=== PATIENT | male | born 1990 | race African-American/Black ===

== ENCOUNTER 2019-06-26 08:15 | Emergency (ER) | payer SELFPAY ==
[~2019-06-26] VITALS: Ht 188 cm; Wt 176.9 kg
[2019-06-26 10:35] LABS: BASO % 1 % (0-3); EOS # 0.1 x10^3/uL (0.0-0.7); EOS % 1 % (0-3); HEMATOCRIT 35.6 % (39.0-53.0); HEMOGLOBIN 11.8 g/dL (13.0-17.5); LYMPH % 17 % (24-48); MEAN CORPUSCULAR HEMOGLOBIN 27 pg (25-35); MEAN CORPUSCULAR HGB CONC 33 g/dL (31-37); MEAN CORPUSCULAR VOLUME 82 fL (79-100); MONO # 0.4 x10^3/uL (0.0-1.1); MONO % 7 % (0-9); NEUT # 4.5 x10^3/uL (1.8-7.7); NEUT % 75 % (31-73); PLATELET COUNT 332 x10^3/uL (140-400); RED BLOOD COUNT 4.33 x10^6/uL (4.30-5.70); RED CELL DISTRIBUTION WIDTH 15.8 % (11.5-14.5); WHITE BLOOD COUNT 6.1 x10^3/uL (4.0-11.0)
--- NOTE | 2019-06-26 10:38 | RAD ---
PORTABLE CHEST 1V History: Palpitations Comparison: June 16, 2014 Findings: Low lung volumes. Retrocardiac opacity. Stable heart size. Impression: 1. Low lung volumes with retrocardiac opacity, most likely summation artifact and/or atelectasis. PA and lateral view of the chest can better evaluate. Electronically signed by: Tera Lawrence DO (06/26/2019 10:35 AM) [id number]
[2019-06-26] MEDS ORDERED: IV NORMAL SALINE 1000ML BAG 1,000 ML IV ONE (10:45)
[2019-06-26 10:58] LABS: BILIRUBIN,URINE NEGATIVE (NEG); CLARITY,URINE TURBID; COLOR,URINE YELLOW; NITRITE,URINE NEGATIVE (NEG); PROTEIN,URINE NEGATIVE (NEG-TRACE)
[2019-06-26 10:59] LABS: CALCIUM 8.9 mg/dL (8.5-10.1); GFR 108.5; POTASSIUM 3.9 mmol/L (3.5-5.1)
[2019-06-26 11:06] LABS: BACTERIA,URINE 0 /HPF (0-FEW); RBC,URINE 0 /HPF (0-2); SQUAMOUS EPITHELIAL CELL,UR OCC /LPF; WBC,URINE OCC /HPF (0-4)
[2019-06-26 11:12] LABS: ALBUMIN 3.2 g/dL (3.4-5.0); ALBUMIN/GLOBULIN RATIO 0.7 (1.0-1.7); MAGNESIUM 1.8 mg/dL (1.8-2.4); TOTAL BILIRUBIN 0.4 mg/dL (0.2-1.0); TOTAL PROTEIN 7.6 g/dL (6.4-8.2)
--- NOTE | 2019-06-26 11:16 | EKG ---
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
[2019-06-26 11:22] VITALS: BP 123/65
--- NOTE | 2019-06-26 11:45 | PHYS DOC ---
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 He states he felt his chest was tight. Denies any chest pain, denies any shortness of breath. Denies any significant previous medical history. Denies any family history of cardiac events at the age of 50 or less. He states he drinks energy drinks but did not take any this morning. Denies any fever, coughing, congestion. Review of Systems Review of Systems Constitutional: Denies fever or chills [] Eyes: Denies change in visual acuity, redness, or eye pain [] HENT: Denies nasal congestion or sore throat [] Respiratory: Denies cough or shortness of breath [] Cardiovascular: Reports palpitations GI: Denies abdominal pain, nausea, vomiting, bloody stools or diarrhea [] : Denies dysuria or hematuria [] Musculoskeletal: Denies back pain or joint pain [] Integument: Denies rash or skin lesions [] Neurologic: Denies headache, focal weakness or sensory changes [] All other systems were reviewed and found to be within normal limits, except as documented in this note. Current Medications Current Medications Current Medications Medications (Trade) Dose Ordered Sig/[facility] Start Time Stop Time Status Last Admin Dose Admin Sodium Chloride 1,000 ml @ 1,000 mls/hr 1X ONCE 06/26/19 10:45 06/26/19 11:44 06/26/19 10:40 1,000 MLS/HR Allergies Allergies Allergies Coded Allergies Type Severity Reaction Last Updated Verified No Known Drug Allergies 06/16/14 No Physical Exam Physical Exam Constitutional: Well developed, well nourished, no acute distress, non-toxic appearance. [] HENT: Normocephalic, atraumatic, bilateral external ears normal, oropharynx moist, no oral exudates, nose normal. [] Eyes: PERRLA, EOMI, conjunctiva normal, no discharge. [] Neck: Normal range of motion, no tenderness, supple, no stridor. [] Cardiovascular:Heart rate regular rhythm, no murmur [] Lungs & Thorax: Bilateral breath sounds clear to auscultation [] Abdomen: Bowel sounds normal, soft, no tenderness, no masses, no pulsatile masses. [] Skin: Warm, dry, no erythema, no rash. [] Back: No tenderness, no CVA tenderness. [] Extremities: No tenderness, no cyanosis, no clubbing, ROM intact, no edema. [] Neurologic: Alert and oriented X 3, normal motor function, normal sensory function, no focal deficits noted. [] Psychologic: Affect normal, judgement normal, mood normal. [] Current Patient Data Vital Signs Vital Signs Date Time Temp Pulse Resp B/P (MAP) Pulse Ox O2 Delivery O2 Flow Rate FiO2 06/26/19 11:22 70 123/65 (84) 96 Room Air 06/26/19 08:50 98.6 16 98.6 Lab Values Laboratory Tests Test 06/26/19 10:20 06/26/19 10:35 White Blood Count 6.1 x10^3/uL (4.0-11.0) Red Blood Count 4.33 x10^6/uL (4.30-5.70) Hemoglobin 11.8 g/dL (13.0-17.5) L Hematocrit 35.6 % (39.0-53.0) L Mean Corpuscular Volume 82 fL (79-100) Mean Corpuscular Hemoglobin 27 pg (25-35) Mean Corpuscular Hemoglobin Concent 33 g/dL (31-37) Red Cell Distribution Width 15.8 % (11.5-14.5) H Platelet Count 332 x10^3/uL (140-400) Neutrophils (%) (Auto) 75 % (31-73) H Lymphocytes (%) (Auto) 17 % (24-48) L Monocytes (%) (Auto) 7 % (0-9) Eosinophils (%) (Auto) 1 % (0-3) Basophils (%) (Auto) 1 % (0-3) Neutrophils # (Auto) 4.5 x10^3/uL (1.8-7.7) Lymphocytes # (Auto) 1.0 x10^3/uL (1.0-4.8) Monocytes # (Auto) 0.4 x10^3/uL (0.0-1.1) Eosinophils # (Auto) 0.1 x10^3/uL (0.0-0.7) Basophils # (Auto) 0.0 x10^3/uL (0.0-0.2) D-Dimer (Shandra) 0.48 ug/mlFEU (0.00-0.50) Sodium Level 142 mmol/L (136-145) Potassium Level 3.9 mmol/L (3.5-5.1) Chloride Level 105 mmol/L (98-107) Carbon Dioxide Level 29 mmol/L (21-32) Anion Gap 8 (6-14) Blood Urea Nitrogen 7 mg/dL (8-26) L Creatinine 1.0 mg/dL (0.7-1.3) Estimated GFR (Cockcroft-Gault) 108.5 BUN/Creatinine Ratio 7 (6-20) Glucose Level 100 mg/dL (70-99) H Calcium Level 8.9 mg/dL (8.5-10.1) Magnesium Level 1.8 mg/dL (1.8-2.4) Total Bilirubin 0.4 mg/dL (0.2-1.0) Aspartate Amino Transferase (AST) 28 U/L (15-37) Alanine Aminotransferase (ALT) 30 U/L (16-63) Alkaline Phosphatase 57 U/L (46-116) Creatine Kinase 438 U/L (39-308) H Creatine Kinase MB (Mass) 1.4 ng/mL (0.0-3.6) Creatine Kinase MB Relative Index 0.3 % (0-4) Troponin I Quantitative < 0.017 ng/mL (0.000-0.055) YF-Wmh-N-Type Natriuretic Peptide 76 pg/mL (0-124) Total Protein 7.6 g/dL (6.4-8.2) Albumin 3.2 g/dL (3.4-5.0) L Albumin/Globulin Ratio 0.7 (1.0-1.7) L Thyroid Stimulating Hormone (TSH) 1.165 uIU/mL (0.358-3.74) Urine Collection Type Unknown Urine Color Yellow Urine Clarity Turbid Urine pH 8.0 Urine Specific [place] 1.020 Urine Protein Negative mg/dL (NEG-TRACE) Urine Glucose (UA) Negative mg/dL (NEG) Urine Ketones (Stick) Negative mg/dL (NEG) Urine Blood Negative (NEG) Urine Nitrite Negative (NEG) Urine Bilirubin Negative (NEG) Urine Urobilinogen Dipstick 1.0 mg/dL (0.2 mg/dL) Urine Leukocyte Esterase Negative (NEG) Urine RBC 0 /HPF (0-2) Urine WBC Occ /HPF (0-4) Urine Squamous Epithelial Cells Occ /LPF Urine Bacteria 0 /HPF (0-FEW) Laboratory Tests 06/26/19 10:20 Laboratory Tests 06/26/19 10:20 EKG EKG 1009 Interpreted by Yojana sinus rhythm HR 73 no STEMI Radiology/Procedures Radiology/Procedures []PROCEDURE: PORTABLE CHEST 1V PORTABLE CHEST 1V History: Palpitations Comparison: June 16, 2014 Findings: Low lung volumes. Retrocardiac opacity. Stable heart size. Impression: 1. Low lung volumes with retrocardiac opacity, most likely summation artifact and/or atelectasis. PA and lateral view of the chest can better evaluate. Electronically signed by: Tera Gates DO (06/26/2019 10:35 AM) [id number] DICTATED and SIGNED BY: TERA GATES DO DATE: 06/26/19 1035 Course & Med Decision Making Course & Med Decision Making Pertinent Labs and Imaging studies reviewed. (See chart for details) This is a 28-year-old male patient presented to the ED today with complaints of his heart racing when on the way to work. Patient arrives in the ED with heart rates in the 70s to 80s. EKG shows sinus rate them. Lab work is negative i ncluding d-dimer. His hemoglobin is slightly low at 11.8 with hematocrit of 35.6, this is around his baseline. No rectal bleeding, no abdominal pain nausea or vomiting. Patient was given a liter of fluid. He is feeling better. Discharged to home. Provided general practitioner for follow-up. Dragon Disclaimer Dragon Disclaimer This electronic medical record was generated, in whole or in part, using a voice recognition dictation system. Departure Departure Impression: Primary Impression: Palpitations Disposition: HOME, SELF-CARE Condition: STABLE Referrals: NO PCP (PCP) COLIN JACOBS MD follow up in one week Patient Instructions: Palpitations, [id number] Additional Instructions: You on the were evaluated in the emergency room for palpitations, your workup was negative for any acute findings. Please establish care with a general practitioner as well as a primary care doctor and follow-up Scripts No Active Prescriptions or Reported Meds JELANI OTTO APRN Jun 26, 2019 11:45
== END 2019-06-26 12:04 | disposition home or self-care (01) ==
LOC: ER 08:15
DX: R00.2 Palpitations (principal); E66.01 Morbid (severe) obesity due to excess calories; Z68.43 Body mass index [BMI] 50.0-59.9, adult
CPT/HCPCS: 36415; 71045; 80053; 81001; 82553; 83735; 83880; 84443; 84484; 85025; 85379; 93005; 99285; J7030

== ENCOUNTER 2019-08-15 07:42 | Emergency (ER) | payer SELFPAY ==
[~2019-08-15] VITALS: Ht 188 cm; Wt 176.9 kg
[2019-08-15] MEDS ORDERED: IV NORMAL SALINE 1000ML BAG 1,000 ML IV SCH (08:01)
--- NOTE | 2019-08-15 08:07 | PHYS DOC ---
Past Medical History Additional Past Medical Histor: obesity Past Surgical History: No Surgical History Alcohol Use: Occasionally Drug Use: None Adult General Chief Complaint Chief Complaint: CHEST PAIN HPI HPI Patient is a 28-year-old male who presents to the emergency department for evaluation. He states that he was in his usual state of health last night when he went to bed, and awaken this morning with nasal congestion, a fever, as well as anterior pleuritic chest pain. He has not had a cough. He denies any otalgia, sore throat, abdominal pain, and his anterior chest pain is sharp, and nonradiating. Other than deep breathing worsens his pain, There are no alleviating or exacerbating factors to his symptoms otherwise. Review of Systems Review of Systems Constitutional: Denies fever or chills [] Eyes: Denies change in visual acuity, redness, or eye pain [] HENT: Denies otalgia or sore throat [] Respiratory: Denies cough. Reports felt short of breath earlier this morning.[] Cardiovascular: No additional information not addressed in HPI [] GI: Denies abdominal pain, nausea, vomiting, bloody stools or diarrhea [] : Denies dysuria or hematuria [] Musculoskeletal: Denies back pain or joint pain [] Integument: Denies rash or skin lesions [] Neurologic: Denies headache, focal weakness or sensory changes [] Endocrine: Denies polyuria or polydipsia [] All other systems were reviewed and found to be within normal limits, except as documented in this note. Current Medications Current Medications Current Medications Medications (Trade) Dose Ordered Sig/Carolyn Start Time Stop Time Status Last Admin Dose Admin Acetaminophen (Tylenol) 1,000 mg 1X ONCE 08/15/19 08:15 08/15/19 08:16 DC 08/15/19 08:31 1,000 MG Sodium Chloride 1,000 ml @ 1,000 mls/hr Q1H 08/15/19 08:01 08/15/19 09:00 DC 08/15/19 08:31 1,000 MLS/HR Allergies Allergies Allergies Coded Allergies Type Severity Reaction Last Updated Verified No Known Drug Allergies 06/16/14 No Physical Exam Physical Exam PHYSICAL EXAM: CONSTITUTIONAL: Well developed, well nourished HEAD: normocephalic, atraumatic EENT: PERRL, EOMI. Conjunctivae normal color, sclerae non-icteric; moist mucous membranes. Nasal congestion is present. NECK: Supple, non-tender; no meningismus. LUNGS: Lungs CTA, breathing even and unlabored. Normal air movement. HEART: Regular rate and rhythm, no murmur CHEST: No deformity; there is tenderness to palpation to the anterior chest wall, which reproduces the patient's pain. ABDOMEN: The abdomen is soft, and non-tender, no masses or bruits. EXTREM: Normal ROM; no deformity, no calf tenderness. Normal pulses palpable in all extremities. There is no pedal edema. SKIN: No rash; no diaphoresis NEURO: Alert; normal speech and cognition; CN's grossly intact; strength grossly intact without focal deficit. BACK: No CVA TTP. Current Patient Data Vital Signs Vital Signs Date Time Temp Pulse Resp B/P (MAP) Pulse Ox O2 Delivery O2 Flow Rate FiO2 08/15/19 08:30 104 20 138/55 (82) 95 Room Air 08/15/19 07:47 105.4 105.4 Lab Values Laboratory Tests Test 08/15/19 08:15 White Blood Count 11.5 x10^3/uL (4.0-11.0) H Red Blood Count 4.39 x10^6/uL (4.30-5.70) Hemoglobin 12.0 g/dL (13.0-17.5) L Hematocrit 36.4 % (39.0-53.0) L Mean Corpuscular Volume 83 fL (79-100) Mean Corpuscular Hemoglobin 27 pg (25-35) Mean Corpuscular Hemoglobin Concent 33 g/dL (31-37) Red Cell Distribution Width 15.6 % (11.5-14.5) H Platelet Count 328 x10^3/uL (140-400) Neutrophils (%) (Auto) 87 % (31-73) H Lymphocytes (%) (Auto) 7 % (24-48) L Monocytes (%) (Auto) 6 % (0-9) Eosinophils (%) (Auto) 0 % (0-3) Basophils (%) (Auto) 0 % (0-3) Neutrophils # (Auto) 10.0 x10^3/uL (1.8-7.7) H Lymphocytes # (Auto) 0.8 x10^3/uL (1.0-4.8) L Monocytes # (Auto) 0.7 x10^3/uL (0.0-1.1) Eosinophils # (Auto) 0.0 x10^3/uL (0.0-0.7) Basophils # (Auto) 0.0 x10^3/uL (0.0-0.2) Platelet Estimate Pending D-Dimer (Shandra) 0.38 ug/mlFEU (0.00-0.50) Sodium Level 141 mmol/L (136-145) Potassium Level 4.1 mmol/L (3.5-5.1) Chloride Level 105 mmol/L (98-107) Carbon Dioxide Level 27 mmol/L (21-32) Anion Gap 9 (6-14) Blood Urea Nitrogen 10 mg/dL (8-26) Creatinine 1.3 mg/dL (0.7-1.3) Estimated GFR (Cockcroft-Gault) 80.1 BUN/Creatinine Ratio 8 (6-20) Glucose Level 100 mg/dL (70-99) H Lactic Acid Level 1.2 mmol/L (0.4-2.0) Calcium Level 9.4 mg/dL (8.5-10.1) Total Bilirubin 0.8 mg/dL (0.2-1.0) Aspartate Amino Transferase (AST) 24 U/L (15-37) Alanine Aminotransferase (ALT) 26 U/L (16-63) Alkaline Phosphatase 57 U/L (46-116) Troponin I Quantitative < 0.017 ng/mL (0.000-0.055) BX-Emq-A-Type Natriuretic Peptide 130 pg/mL (0-124) H Total Protein 7.5 g/dL (6.4-8.2) Albumin 3.5 g/dL (3.4-5.0) Albumin/Globulin Ratio 0.9 (1.0-1.7) L Influenza Type A Antigen Negative (NEGATIVE) Influenza Type B Antigen Negative (NEGATIVE) Laboratory Tests 08/15/19 08:15 Laboratory Tests 08/15/19 08:15 EKG EKG [] Sinus tachycardia at a rate of 123 bpm, normal axis, normal intervals. Nonspecific ST/T changes. Radiology/Procedures Radiology/Procedures PROCEDURE: CHEST PA & LATERAL CHEST PA LATERAL History: Fever, cough, chest pain Comparison: 06/26/2019 Portable Chest X-ray Exam. Findings: Frontal and lateral views of the chest were obtained. Limited pulmonary inflation noted. The cardiomediastinal silhouette is normal. Pulmonary vasculature is normal. The lungs are clear. No pleural effusion or pneumothorax is seen. There is no acute bone abnormality. IMPRESSION: No acute cardiopulmonary process. [] Course & Med Decision Making Course & Med Decision Making Pertinent Labs and Imaging studies reviewed. (See chart for details) []9:30 AM:Patient remains stable. He is feeling better at this time. I discussed test results, the need for close follow-up, and return precautions. Dragon Disclaimer Dragon Disclaimer This electronic medical record was generated, in whole or in part, using a voice recognition dictation system. Departure Departure Impression: Primary Impression: Upper respiratory infection Additional Impression: Musculoskeletal chest pain Disposition: HOME, SELF-CARE Condition: STABLE Patient Instructions: Musculoskeletal Pain, Pleurisy, Upper Respiratory Infection, Adult Additional Instructions: Ibuprofen 400-600 mg every 6 hours may help improve your symptoms. Applying a heating pad to the affected area may help improve your symptoms. Use the provided list of primary care providers to schedule follow-up with a PCP, for further outpatient evaluation and treatment. Scripts No Active Prescriptions or Reported Meds Problem Qualifiers KAILASH AVENDANO MD Aug 15, 2019 08:07
[2019-08-15] MEDS ORDERED: ACETAMINOPHEN 500 MG TABLET PO ONE (08:15)
--- NOTE | 2019-08-15 08:31 | EKG ---
[facility] [address] [place] [address] Test Date: 2019-08-15 Test Time: 07:50:01 Pat Name: HUBER ZUNIGA Department: Room: Gender: M [employer] C[employer]: : 1990 Requested By: KAILASH AVENDANO Order Number: [id number] Reading MD: Measurements Intervals [place] Rate: 122 P: -56 [place]: 134 QRS: 17 QRSD: 84 T: 52 QT: 344 QTc: 498 Interpretive Statements SINUS TACHYCARDIA LEFT ATRIAL ABNORMALITY NON SPECIFIC T ABNORMALITY ABNORMAL ECG No previous ECG available for comparison
[2019-08-15 08:36] LABS: BASO % 0 % (0-3); EOS % 0 % (0-3); HEMATOCRIT 36.4 % (39.0-53.0); LYMPH # 0.8 x10^3/uL (1.0-4.8); LYMPH % 7 % (24-48); MEAN CORPUSCULAR HEMOGLOBIN 27 pg (25-35); MEAN CORPUSCULAR HGB CONC 33 g/dL (31-37); MEAN CORPUSCULAR VOLUME 83 fL (79-100); MONO # 0.7 x10^3/uL (0.0-1.1); MONO % 6 % (0-9); NEUT % 87 % (31-73); PLATELET COUNT 328 x10^3/uL (140-400); RED BLOOD COUNT 4.39 x10^6/uL (4.30-5.70); RED CELL DISTRIBUTION WIDTH 15.6 % (11.5-14.5); WHITE BLOOD COUNT 11.5 x10^3/uL (4.0-11.0)
--- NOTE | 2019-08-15 08:36 | RAD ---
CHEST PA LATERAL History: Fever, cough, chest pain Comparison: 06/26/2019 Portable Chest X-ray Exam. Findings: Frontal and lateral views of the chest were obtained. Limited pulmonary inflation noted. The cardiomediastinal silhouette is normal. Pulmonary vasculature is normal. The lungs are clear. No pleural effusion or pneumothorax is seen. There is no acute bone abnormality. IMPRESSION: No acute cardiopulmonary process. Electronically signed by: Fredy Beaver MD (08/15/2019 8:33 AM) [facility]
[2019-08-15 08:52] LABS: CALCIUM 9.4 mg/dL (8.5-10.1); CREATININE 1.3 mg/dL (0.7-1.3); GFR 80.1; POTASSIUM 4.1 mmol/L (3.5-5.1)
[2019-08-15 09:04] LABS: ALBUMIN 3.5 g/dL (3.4-5.0); ALBUMIN/GLOBULIN RATIO 0.9 (1.0-1.7); TOTAL BILIRUBIN 0.8 mg/dL (0.2-1.0); TOTAL PROTEIN 7.5 g/dL (6.4-8.2)
[2019-08-15 09:18] LABS: INFLUENZA A PATIENT NEGATIVE (NEGATIVE); INFLUENZA B PATIENT NEGATIVE (NEGATIVE)
[2019-08-15 09:30] VITALS: BP 143/63
[2019-08-15] MEDS ORDERED: KETOROLAC 30 MG/ML VIAL. IV ONE (09:30)
[2019-08-15 09:55] LABS: % LYMPHS 5 % (24-48); % MONOS 4 % (0-10); % SEGS 91 % (35-66); PLT ESTIMATE ADEQUATE (ADEQUATE)
== END 2019-08-15 10:01 | disposition home or self-care (01) ==
LOC: ER 07:42
DX: J06.9 Acute upper respiratory infection, unspecified (principal); R07.89 Other chest pain; E66.9 Obesity, unspecified; Z68.43 Body mass index [BMI] 50.0-59.9, adult
CPT/HCPCS: 36415; 71046; 80053; 83605; 83880; 84484; 85007; 85025; 85379; 87804; 93005; 96374; 99285; J1885; J7030

== ENCOUNTER 2020-09-11 12:27 | Emergency (ER) | payer OTHER ==
[~2020-09-11] VITALS: Ht 188 cm; Wt 186.3 kg
[2020-09-11] MEDS ORDERED: ASPIRIN 325 MG TABLET PO ONE (12:45)
[2020-09-11] MEDS ORDERED: PANTOPRAZOLE IV PUSH 40 MG VIAL. IVP ONE (12:45)
--- NOTE | 2020-09-11 12:45 | PHYS DOC ---
Past Medical History Additional Past Medical Histor: obesity Past Surgical History: No Surgical History Smoking Status: Never Smoker Alcohol Use: Occasionally Drug Use: None General Adult EDM: Chief Complaint: CHEST PAIN HPI: HPI: Patient is a 29 year old male who presents with this morning he states he began having tightness with some soa and pressure in his mid chest and then on the way here about 30-45 minutes ago he has left arm tingling. He states that he saw his neurologist this morning for his migraines. He states there is no family history of heart disease, heart attacks, sudden cardiac arrests. He states his only history is GERD and migraines. He rates this chest pressure a 7 out of 10. He states his left arm still feels tingly. Denies numbness. There is no focal weakness. Patient denies abdominal pain, syncope, dizziness, headache, vision changes, numbness, nausea, vomiting, diarrhea, fever, cough, recent illness. He states he does not smoke. Review of Systems: Review of Systems: Constitutional: Denies fever or chills. [] Eyes: Denies change in visual acuity. [] HENT: Denies nasal congestion or sore throat. [] Respiratory: Denies cough. +shortness of breath. [] Cardiovascular: + chest pain or denies edema. [] GI: Denies abdominal pain, nausea, vomiting, bloody stools or diarrhea. [] : Denies dysuria. [] Musculoskeletal: Denies back pain or joint pain. [] Integument: Denies rash. [] Neurologic: Denies headache, focal weakness or sensory changes. +Left arm tingling [] Endocrine: Denies polyuria or polydipsia. [] Lymphatic: Denies swollen glands. [] Psychiatric: Denies depression or anxiety. [] Heart Score: HEART Score for Chest Pain: HEART Score for Chest Pain Response (Comments) Value History Moderately Suspicious 1 ECG Nonspecific Repolarizatio 1 Age < 45 0 Risk Factors 1 or 2 Risk Factors 1 Troponin < Normal Limit 0 Total 3 Risk Factors: Risk Factors: DM, Current or recent (<one month) smoker, HTN, HLP, family history of CAD, obesity. Risk Scores: Score 0 - 3: 2.5% MACE over next 6 weeks - Discharge Home Score 4 - 6: 20.3% MACE over next 6 weeks - Admit for Clinical Observation Score 7 - 10: 72.7% MACE over next 6 weeks - Early Invasive Strategies Allergies: Allergies: Allergies Coded Allergies Type Severity Reaction Last Updated Verified No Known Drug Allergies 06/16/14 No Physical Exam: PE: Constitutional: Well developed, morbidly obese, well nourished, no acute distress, non-toxic appearance. [] HENT: Normocephalic, atraumatic, bilateral external ears normal, oropharynx moist, no oral exudates, nose normal. [] Eyes: PERRLA, EOMI, conjunctiva normal, no discharge. [] Neck: Normal range of motion, no tenderness, supple, no stridor. [] Cardiovascular:Heart rate bigeminy rhythm, no murmur [] Lungs & Thorax: Bilateral breath sounds clear to auscultation [] Abdomen: Bowel sounds normal, soft, no tenderness, no masses, no pulsatile masses. [] Skin: Warm, dry, no erythema, no rash. [] Back: No tenderness, no CVA tenderness. [] Extremities: No tenderness, no cyanosis, no clubbing, ROM intact, no edema. [] Neurologic: Alert and oriented X 3, normal motor function, normal sensory function, no focal deficits noted. [] Psychologic: Affect normal, judgement normal, mood normal. [] EKG: EK and read by Dr Dial as bigeminy and no STEMI. Radiology/Procedures: Radiology/Procedures: [] Impression: [facility] [address] [place] [address] IMAGING REPORT Signed PATIENT: HUBER ZUNIGA ACCOUNT: [id number] : 1990 LOCATION: ER AGE: 29 SEX: M EXAM STATUS: REG ER ORD. PHYSICIAN: CARLITO SOLER APRN REASON: MID-CHEST PAIN, TIGHTNESS PROCEDURE: PORTABLE CHEST 1V EXAMINATION: PORTABLE CHEST 1V CLINICAL HISTORY: Mid chest pain/tightness EXAM DATE/TIME: 09/11/2020 12:35 PM COMPARISON: 08/15/2019 FINDINGS: Lines, Tubes, and Devices: None. Cardiomediastinal Silhouette: Normal heart size. Lungs and Pleura: No evidence of focal airspace consolidation or pleural effusion. Pulmonary vasculature unremarkable. Bones and Soft Tissues: No acute osseous abnormality. IMPRESSION: No evidence of acute cardiopulmonary abnormality or significant interval change. Electronically signed by: Umesh Saba DO (09/11/2020 1:40 PM) [id number] DICTATED and SIGNED BY: UMESH SABA DO DATE: 09/11/20 1340 [facility] [address] [place] [address] IMAGING REPORT Signed PATIENT: HUBER ZUNIGA ACCOUNT: [id number] : 1990 LOCATION: [address] [place] [address] AGE: 29 SEX: M EXAM STATUS: ADM IN ORD. PHYSICIAN: CARLITO SOLER APRN REASON: BIGEMINY, CHEST PAIN PROCEDURE: CT ANGIOGRAPHY CHEST CT ANGIOGRAPHY CHEST INDICATION: BIGEMINY, CHEST PAIN Comparison: Radiograph 09/11/2020. TECHNIQUE: Following the uneventful administration of intravenous contrast, 100 cc Omnipaque 350, axial CT sections were obtained through the lungs and upper abdomen. Multiplanar reconstructions and MIP images were obtained. PQRS compliance statement: One or more of the following individualized dose reduction techniques were utilized for this examination: 1. Automated exposure control 2. Adjustment of the mA and/or kV according to patient size 3. Use of iterative reconstruction technique FINDINGS: Pulmonary arteries: No large central pulmonary thromboembolic disease. Segmental and subsegmental branches not well evaluated due to suboptimal contrast opacification. Lungs and Airways: No pulmonary mass or consolidation. No abnormality of the central airways. Pleura: The pleural spaces are normal. Heart and Mediastinum: The visualized thyroid is normal in size and attenuation. No axillary or supraclavicular lymphadenopathy. No mediastinal, hilar or retrocrural lymphadenopathy. Cardiomegaly. No pericardial effusion. The great vessels of the thorax are normal. Abdomen: Limited images through the upper abdomen show no abnormality of the visualized organs. Bones and Soft Tissues: The visualized bones and chest wall soft tissues are within normal limits. IMPRESSION: 1.No large central pulmonary thromboembolic disease. Segmental and subsegmental branches not well evaluated due to suboptimal contrast opacification. 2. No pulmonary mass or consolidation. Electronically signed by: Matilda Presley MD (09/11/2020 4:24 PM) [id number] DICTATED and SIGNED BY: MATILDA PRESLEY MD DATE: 09/11/20 1624 Course & Med Decision Making: Course & Med Decision Making Pertinent Labs and Imaging studies reviewed. (See chart for details) See HPI. Alert and oriented x4. The pressure in the tightness is not reproducible. Nothing makes it worse or better. It is continuous. He is morbidly obese. Speaks in full clear sentences. Ambulatory with a steady gait. EKG shows bigeminy but no STEMI. This is a new diagnosis for the patient. Blood work unremarkable. Chest x-ray shows no acute findings. Patient will be admitted for bigeminy heart rhythm and is associated symptoms. Patient admitted by Dr. Monique. Dr. Monique states he wants a CT of the chest done. I have ordered it. Dr. Monique called Dr. Aj and Dr. Aj has seen the patient down in the ED. Dr. Aj states that the patient does not need to be admitted and he will set him up for a outpatient echo. The patient is fine with this. Dr. Monique states the patient will be discharged. [] Kristi Disclaimer: Kristi Disclaimer: This electronic medical record was generated, in whole or in part, using a voice recognition dictation system. Departure Departure Impression: Primary Impression: Bigeminal rhythm Disposition: ADMITTED INPT THIS HOSP Condition: STABLE Referrals: NO PCP (PCP) Scripts No Active Prescriptions or Reported Meds CARLITO SOLER APRN Sep 11, 2020 12:45
[2020-09-11 13:03] LABS: BASO % 1 % (0-3); EOS # 0.1 x10^3/uL (0.0-0.7); EOS % 1 % (0-3); HEMOGLOBIN 12.1 g/dL (13.0-17.5); LYMPH # 1.3 x10^3/uL (1.0-4.8); LYMPH % 20 % (24-48); MEAN CORPUSCULAR HEMOGLOBIN 28 pg (25-35); MEAN CORPUSCULAR HGB CONC 33 g/dL (31-37); MEAN CORPUSCULAR VOLUME 82 fL (79-100); MONO # 0.4 x10^3/uL (0.0-1.1); MONO % 6 % (0-9); NEUT # 4.5 x10^3/uL (1.8-7.7); NEUT % 71 % (31-73); PLATELET COUNT 340 x10^3/uL (140-400); RED BLOOD COUNT 4.38 x10^6/uL (4.30-5.70); WHITE BLOOD COUNT 6.3 x10^3/uL (4.0-11.0)
[2020-09-11 13:11] LABS: PROTHROMBIN TIME PATIENT 13.1 SEC (11.7-14.0)
[2020-09-11 13:18] LABS: CALCIUM 8.9 mg/dL (8.5-10.1); GFR 107.7; POTASSIUM 3.9 mmol/L (3.5-5.1)
[2020-09-11 13:23] LABS: ALBUMIN 3.4 g/dL (3.4-5.0); ALBUMIN/GLOBULIN RATIO 0.8 (1.0-1.7); MAGNESIUM 2.2 mg/dL (1.8-2.4); TOTAL BILIRUBIN 0.5 mg/dL (0.2-1.0); TOTAL PROTEIN 7.5 g/dL (6.4-8.2)
[2020-09-11 13:33] LABS: BILIRUBIN,URINE NEGATIVE (NEG); CLARITY,URINE CLEAR; COLOR,URINE YELLOW; NITRITE,URINE NEGATIVE (NEG); PH,URINE 7.5 (<5.0-8.0); PROTEIN,URINE NEGATIVE (NEG-TRACE); UROBILINOGEN,URINE 0.2 mg/dL (0.2 mg/dL)
[2020-09-11 13:43] LABS: BARBITURATES NEG (NEG); BENZODIAZEPINES NEG (NEG); CANNABINOIDS NEG (NEG); COCAINE NEG (NEG); METHADONE NEG (NEG); OPIATES NEG (NEG); PHENCYCLIDINE NEG (NEG)
--- NOTE | 2020-09-11 13:43 | RAD ---
EXAMINATION: PORTABLE CHEST 1V CLINICAL HISTORY: Mid chest pain/tightness EXAM DATE/TIME: 09/11/2020 12:35 PM COMPARISON: 08/15/2019 FINDINGS: Lines, Tubes, and Devices: None. Cardiomediastinal Silhouette: Normal heart size. Lungs and Pleura: No evidence of focal airspace consolidation or pleural effusion. Pulmonary vasculature unremarkable. Bones and Soft Tissues: No acute osseous abnormality. IMPRESSION: No evidence of acute cardiopulmonary abnormality or significant interval change. Electronically signed by: Eron Chavez DO (09/11/2020 1:40 PM) [id number]
[2020-09-11 13:48] LABS: AMPHETAMINE/METHAMPHETAMINE NEG (NEG)
[2020-09-11 13:55] LABS: BACTERIA,URINE 0 /HPF (0-FEW); RBC,URINE 0 /HPF (0-2); WBC,URINE 0 /HPF (0-4)
[2020-09-11 15:32] VITALS: BP 135/64
[2020-09-11] MEDS ORDERED: IV NORMAL SALINE 1000ML BAG 1,000 ML IV ONE (15:45)
[2020-09-11] MEDS ORDERED: IOHEXOL 350 MG/ML 100 ML VIAL. IV ONE (15:45)
[2020-09-11] MEDS ORDERED: CONTRAST GIVEN. MC PRN (16:00)
--- NOTE | 2020-09-11 16:17 | EKG ---
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
--- NOTE | 2020-09-11 16:26 | RAD ---
CT ANGIOGRAPHY CHEST INDICATION: BIGEMINY, CHEST PAIN Comparison: Radiograph 09/11/2020. TECHNIQUE: Following the uneventful administration of intravenous contrast, 100 cc Omnipaque 350, axial CT sections were obtained through the lungs and upper abdomen. Multiplanar reconstructions and MIP images were obtained. PQRS compliance statement: One or more of the following individualized dose reduction techniques were utilized for this examination: 1. Automated exposure control 2. Adjustment of the mA and/or kV according to patient size 3. Use of iterative reconstruction technique FINDINGS: Pulmonary arteries: No large central pulmonary thromboembolic disease. Segmental and subsegmental branches not well evaluated due to suboptimal contrast opacification. Lungs and Airways: No pulmonary mass or consolidation. No abnormality of the central airways. Pleura: The pleural spaces are normal. Heart and Mediastinum: The visualized thyroid is normal in size and attenuation. No axillary or supraclavicular lymphadenopathy. No mediastinal, hilar or retrocrural lymphadenopathy. Cardiomegaly. No pericardial effusion. The great vessels of the thorax are normal. Abdomen: Limited images through the upper abdomen show no abnormality of the visualized organs. Bones and Soft Tissues: The visualized bones and chest wall soft tissues are within normal limits. IMPRESSION: 1.No large central pulmonary thromboembolic disease. Segmental and subsegmental branches not well evaluated due to suboptimal contrast opacification. 2. No pulmonary mass or consolidation. Electronically signed by: Hai Presley MD (09/11/2020 4:24 PM) [id number]
--- NOTE | 2020-09-11 16:31 | PDOC2 ---
CARDIOLOGY CONSULT NOTE DATE OF SERVICE: DATE: 09/11/20 TIME: 16:27 CHIEF COMPLAINT: Chest pain HPI: Very pleasant 29 y.o man comes to the ER with chest pain. He states that he normally has no cardiac issues, he saw his neurologist earlier about headaches and felt inadequately treated and then began to have a panic attack. He has been struggling with anxiety and depression recently. No suicidal thoughts. He has no exertional chest pain, dyspnea, orthopnea or PND. Chest pain today was atypical in nature, no specific alleviating or aggravating issues. ER ekg with occ PVC's, therefore cardiology consult ordered. 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 No illicit drug use. 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 FAMHX: No SCD CURRENT MEDS: Current Medications Medications (Trade) Dose Ordered Sig/Carolyn Route PRN Reason Start Time Stop Time Status Last Admin Dose Admin Aspirin (Angeli Aspirin) 325 mg 1X ONCE PO 09/11/20 12:45 09/11/20 12:46 DC 09/11/20 13:19 Pantoprazole Sodium (PROTONIX VIAL for IV PUSH) 40 mg 1X ONCE IVP 09/11/20 12:45 09/11/20 12:46 DC 09/11/20 13:19 Iohexol (Omnipaque 350 Mg/ml) 100 ml 1X ONCE IV 09/11/20 15:45 09/11/20 15:46 DC 09/11/20 16:02 ALLERGIES: Allergies Coded Allergies Type Severity Reaction Last Updated Verified No Known Drug Allergies 06/16/14 No ROS: Negative unless noted above in HPI PHYSICAL EXAM: Vital Signs/I&O: Vital Signs Date Time Temp Pulse Resp B/P (MAP) Pulse Ox O2 Delivery O2 Flow Rate FiO2 09/11/20 12:40 97.8 76 20 149/74 (99) 96 Room Air 97.8 Physical Exam: GEN.: No apparent distress. Alert and oriented. HEENT: Head is normocephalic, atraumatic NECK: Supple. LUNGS: Clear to auscultation. HEART: RRR, S1, S2 present. Peripheral pulses intact ABDOMEN: Soft, nontender. Positive bowel sounds. EXTREMITIES: Without any cyanosis. NEUROLOGIC: Normal speech, normal tone PSYCHIATRIC: Normal affect, normal mood. SKIN: No ulcerations DIAGNOSTIC TESTING: EKG, Trop, CTA negative. Lab Laboratory Tests Test 09/11/20 12:42 09/11/20 13:23 White Blood Count 6.3 x10^3/uL (4.0-11.0) Red Blood Count 4.38 x10^6/uL (4.30-5.70) Hemoglobin 12.1 g/dL (13.0-17.5) L Hematocrit 36.0 % (39.0-53.0) L Mean Corpuscular Volume 82 fL (79-100) Mean Corpuscular Hemoglobin 28 pg (25-35) Mean Corpuscular Hemoglobin Concent 33 g/dL (31-37) Red Cell Distribution Width 16.0 % (11.5-14.5) H Platelet Count 340 x10^3/uL (140-400) Neutrophils (%) (Auto) 71 % (31-73) Lymphocytes (%) (Auto) 20 % (24-48) L Monocytes (%) (Auto) 6 % (0-9) Eosinophils (%) (Auto) 1 % (0-3) Basophils (%) (Auto) 1 % (0-3) Neutrophils # (Auto) 4.5 x10^3/uL (1.8-7.7) Lymphocytes # (Auto) 1.3 x10^3/uL (1.0-4.8) Monocytes # (Auto) 0.4 x10^3/uL (0.0-1.1) Eosinophils # (Auto) 0.1 x10^3/uL (0.0-0.7) Basophils # (Auto) 0.0 x10^3/uL (0.0-0.2) Prothrombin Time 13.1 SEC (11.7-14.0) Prothromb Time International Ratio 1.0 (0.8-1.1) Sodium Level 142 mmol/L (136-145) Potassium Level 3.9 mmol/L (3.5-5.1) Chloride Level 106 mmol/L (98-107) Carbon Dioxide Level 28 mmol/L (21-32) Anion Gap 8 (6-14) Blood Urea Nitrogen 8 mg/dL (8-26) Creatinine 1.0 mg/dL (0.7-1.3) Estimated GFR (Cockcroft-Gault) 107.7 BUN/Creatinine Ratio 8 (6-20) Glucose Level 93 mg/dL (70-99) Calcium Level 8.9 mg/dL (8.5-10.1) Total Bilirubin 0.5 mg/dL (0.2-1.0) Aspartate Amino Transf (AST/SGOT) 23 U/L (15-37) Alkaline Phosphatase 57 U/L (46-116) Total Protein 7.5 g/dL (6.4-8.2) Albumin 3.4 g/dL (3.4-5.0) Albumin/Globulin Ratio 0.8 (1.0-1.7) L Lipase 107 U/L (73-393) Urine Collection Type Unknown Urine Color Yellow Urine Clarity Clear Urine pH 7.5 (<5.0-8.0) Urine Specific [place] 1.020 (1.000-1.030) Urine Protein Negative mg/dL (NEG-TRACE) Urine Glucose (UA) Negative mg/dL (NEG) Urine Ketones (Stick) Negative mg/dL (NEG) Urine Blood Negative (NEG) Urine Nitrite Negative (NEG) Urine Bilirubin Negative (NEG) Urine Urobilinogen Dipstick 0.2 mg/dL (0.2 mg/dL) Urine Leukocyte Esterase Negative (NEG) Urine RBC 0 /HPF (0-2) Urine WBC 0 /HPF (0-4) Urine Bacteria 0 /HPF (0-FEW) Urine Mucus Slight /LPF Urine Opiates Screen Neg (NEG) Urine Methadone Screen Neg (NEG) Urine Barbiturates Neg (NEG) Urine Phencyclidine Screen Neg (NEG) Urine Amphetamine/Methamphetamine Neg (NEG) Urine Benzodiazepines Screen Neg (NEG) Urine Cocaine Screen Neg (NEG) Urine Cannabinoids Screen Neg (NEG) Urine Ethyl Alcohol Neg (NEG) Laboratory Tests 09/11/20 12:42 ASSESSMENT: 1. Non-cardiac chest pain 2. Rubin 3. Morbid obesity PLAN: 1. He has a very low risk presentation. 2. PVC's are benign presently and very infrequent on tele and not evidence on exam now. Labs unremarkable. Discussed with Dr. Monique and ER service, plan to DC if CT chest is wnl with outpt echo and f/u in the office. Recommend weight loss. Supportive care. RIGOBERTO DE LUNA MD Sep 11, 2020 16:31
--- NOTE | 2020-09-13 20:24 | PDOC ---
Provider Note Date of Service: DATE: 09/13/20 TIME: 20:22 Combined H&P and discharge summary dictated.#[id number]. Pt was discharged from the ER on the same day of admission. Justifications for Admission Other Justification JAG BRYANT MD Sep 13, 2020 20:23
--- NOTE | 2020-09-13 20:52 | HP ---
ADMIT DATE: 09/11/2020 COMBINED HISTORY AND PHYSICAL AND DISCHARGE SUMMARY CONSULTATIONS: Dr. Aj of Cardiology. REASON FOR ADMISSION TO THE HOSPITAL: Chest pain, few PVCs. PROCEDURE DONE: CT angiogram of the chest. HISTORY OF PRESENT ILLNESS: The patient is a 29-year-old male with obesity, sleep apnea, anxiety, came in with chest pain, anxiety and had some few PVCs. The patient was admitted to the hospital and drug screen was negative. PAST MEDICAL HISTORY: Sleep apnea, on CPAP, obesity, anxiety. 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 FAMILY HISTORY: No coronary artery disease. MEDICATIONS: Pantoprazole. ALLERGIES: None. REVIEW OF SYSTEMS: Except for anxiety and chest pain. No other problems. PHYSICAL EXAMINATION: VITAL SIGNS: Stable. HEENT: Head is atraumatic. Pupils equal. LUNGS: Clear. ABDOMEN: Soft. EXTREMITIES: No calf tenderness, no edema. LABORATORY DATA: CBC and chem profile was unremarkable. EKG, no ischemic changes, few PVCs. Chest x-ray was negative. Troponin was negative. Urine negative for infection. Drug screen was negative. Chest x-ray negative. CT angiogram was negative for PE. HOSPITAL COURSE: The patient was seen by Cardiology in the Emergency Room since a CT was negative and PVCs are rare, it was decided that the patient could be discharged home, scheduled to see an outpatient and echocardiogram was planned as outpatient. FINAL DIAGNOSES: 1. Chest pain, noncardiac. 2. Few PVCs, improving. 3. Obstructive sleep apnea. 4. Anxiety. 5. Obesity. DISPOSITION: Home. See MRAD for discharge medications. JAG BRYANT MD DR: CORDELL/brian JOB#: [id number] / [id number]
== END 2020-09-11 18:10 | disposition home or self-care (01) ==
LOC: ER 12:27 → 2 SOUTH 14:24 → UNDOADMIN 14:24 → ER 18:10
DX: R00.8 Other abnormalities of heart beat (principal); R06.02 Shortness of breath; R07.89 Other chest pain; K21.9 Gastro-esophageal reflux disease without esophagitis; G43.909 Migraine, unspecified, not intractable, without status migrainosus
CPT/HCPCS: 36415; 71045; 71275; 80053; 80307; 81001; 83690; 83735; 83880; 84484; 85025; 85610; 93005; 96374; 99285; C9113; Q9967